=== PATIENT | female | born 1990 | race Caucasian/White ===

== ENCOUNTER 2018-07-08 06:58 | Day surgery (SDC) | payer OTHER ==
[2018-07-08] VITALS (9 sets, daily range): BP systolic 101–114; BP diastolic 60–76; PULSE 67–94; TEMP 96.6–98.4
[~2018-07-08] VITALS: Ht 162.6 cm; Wt 60.7 kg
[2018-07-08] MEDS ORDERED: ATARAX 10MG10 MG/TAB PO (08:45)
[2018-07-08] MEDS ORDERED: ULTRAM 50MG TAB50 MG PO (08:46)
== END 2018-07-08 13:13 | disposition home or self-care (01) ==
LOC: SDCO 06:58 → SURG 07:02 → SDCO 08:00
DX: N20.1 Calculus of ureter (principal); Z84.1 Family history of disorders of kidney and ureter; Z80.1 Family history of malignant neoplasm of trachea, bronchus and lung
CPT/HCPCS: OP; C1769; C2617; J0690; J2704; J3010; J7120; Q9967